=== PATIENT | male | born 1980 | race Two or more races ===

== ENCOUNTER 2022-03-17 09:11 | Emergency (ER) | payer OTHER, SELFPAY ==
--- NOTE | ~2022-03-17 | XR_ITS ---
EXAMINATION: XR CHEST CLINICAL INFORMATION: Cough COMPARISON: None TECHNIQUE: 2 views of the chest were obtained. FINDINGS: Cardiac silhouette is normal in size. The lungs are well aerated. There is no lobar consolidation. No pleural effusion or pneumothorax. No acute osseous abnormality. XR/XR chest 2V IMPRESSION: No acute pulmonary pathology.
[2022-03-17 09:17] VITALS: BP 140/77; PULSE 62; RESP 18; TEMP 36.4; O2SAT 97; BMI 27.9
[2022-03-17 09:45] LABS: COVID-19 Test Negative (Negative); IDNOW Serial# 55D5AD1C
[2022-03-17 09:49] LABS: IDNOW Serial# 9DB6401D; Influenza A Negative (Negative); Influenza B2 Negative (Negative)
[2022-03-17] MEDS: Ketorolac Tromethamine 30 MG/ML VIAL IM (09:56)
--- NOTE | 2022-03-17 09:56 | ED_ITS ---
HPI - URI/Sore Throat General Chief Complaint: Upper Respiratory Symptoms Stated Complaint: cough pain r lung Time Seen by Provider: 03/17/22 09:38 Source: patient Mode of arrival: ambulatory History of Present Illness HPI Narrative: 41-year-old male with no significant past medical history presenting to the ED complaining nonproductive cough x1 day. Reports coughing fit last night that caused right-sided chest wall discomfort, states pain now worse with palpation, coughing, and breathing. Denies known fever, chills, SOB, trauma/fall, abdominal pain nausea/vomiting, pedal edema, recent travel, sick contacts MD elicited complaint: cough Onset (ago): hour(s) Related Data Previous Rx's Medication Instructions Recorded benzonatate 100 mg capsule 100 mg PO TID PRN cough #14 caps 03/17/22 ketorolac 10 mg tablet 10 mg PO TID PRN pain 5 days #15 03/17/22 tabs lidocaine 5 % topical patch 1 patch topical DAILY PRN pain #30 03/17/22 (Lidoderm) ea Allergies Allergy/AdvReac Type Severity Reaction Status Date / Time sulfamethoxazole Allergy Intermediate HIVES Unverified 11/26/19 15:54 [From BACTRIM] trimethoprim [From BACTRIM] Allergy Intermediate HIVES Unverified 11/26/19 15:54 Sulfa (Sulfonamide Allergy Unknown Verified 04/01/17 00:00 Antibiotics) Review of Systems Review of Systems: Constitutional: No Fever, No Chills ENT/Mouth: No Ear Pain, No Nasal Congestion, No Sinus Pain, No Hoarseness, No sore throat, No Rhinorrhea, No Swallowing Difficulty Cardiovascular: + Chest Wall Pain, No SOB Respiratory: + Cough, No Sputum, No Wheezing Gastrointestinal: No Nausea, No Vomiting, No Diarrhea, No Constipation, No Abdominal pain Genitourinary: No Dysuria, No Urinary Frequency, No Hematuria, No Flank Pain Musculoskeletal: No joint pain, No Myalgias, No Joint Swelling Skin: No Skin Lesions, No rash Neuro: No Weakness, No Numbness, No Paresthesias Yes all other systems are reviewed and are negative Constitutional: Constitutional: Reports as per [facility] Past Medical History Attestation statement: The following information was validated with the patient. Social History Social History Advance Directives: No Advance Directives Information Provided: No Physical Exam Vital Signs: Vital Signs: Last Vital Signs Temp 97.5 F 03/17/22 09:17 Pulse 62 03/17/22 09:17 Resp 18 03/17/22 09:17 BP 140/77 H 03/17/22 09:17 Pulse Ox 97 03/17/22 09:17 O2 Del Method 03/17/22 09:17 BMI result Body Mass Index 27.9 Const: General: cooperative, healthy appearing and no acute distress Orie ntation/consciousness: patient oriented x3 Limitations: no limitations HEENT: Head: Yes normal to inspection and Yes atraumatic Ears: hearing grossly normal bilaterally, external ears normal and TM's normal bilaterally General nose exam: Normal external nose present Face and sinus: Yes normal facial exam Throat: Yes posterior oropharynx normal, Yes tonsils normal and Yes uvula midline Eyes: General: appearance normal, both eyes and all related structures EOM: EOMs intact bilaterally Neck: Neck: Yes normal visual inspection and Yes no meningeal signs Chest: Other: +ttp right anterior lower ribs midclavicular line Chest palpation & inspection: normal inspection of the chest, no crepitus and tenderness Resp: Effort & Inspection: normal respiratory effort, no respiratory distress and no stridor Auscultation: clear to auscultation bilaterally, no crackles, no rales, no rhonchi and no wheezes Cardio: Rate: regular rate Heart sounds: S1 normal heart sound present and S2 normal heart sound present GI: Inspection: Yes normal to inspection Palpation (GI): Soft to palpation, nontender, no guarding and not rigid Skin: Rashes: no rashes Wounds: no wounds Neuro: General: patient oriented x3, tone normal and no meningeal signs Gait exam (Neuro): Normal gait present Extrem: General: Yes normal to inspection Course Course Course Narrative: 1055--COVID and influenza negative. CXR unremarkable. Results discussed with patient including worrisome signs and symptoms and strict return precautions, and when to return to the emergency department. They verbalized understanding and feel safe for discharge at this time. Medications Administered Discontinued Medications Generic Name Dose Route Start Last Admin Trade Name Freq PRN Reason Stop Dose Admin Ketorolac Tromethamine 30 mg 03/17/22 09:50 03/17/22 09:56 Ketorolac Tromethamine 30 Mg/Ml Vial IM 03/17/22 09:51 30 mg ONCE ONE Administration Medical Decision Making Medical Decision Making MDM Narrative: 41-year-old male with no significant past medical history presenting to the ED complaining nonproductive cough x1 day. Reports coughing fit last night that caused right-sided chest wall discomfort, states pain now worse with palpation, coughing, and breathing. On exam vital signs stable, NAD, nontoxic appearing, lungs CTA, chest wall pain reproducible, abdomen soft/nontender. Concern for costochondritis vs occult rib fracture. Rule out pneumonia. Low suspicion for ACS/PE Plan: COVID-19/influenza testing, CXR, IM Toradol Please refer to course for remaining clinical decision making, interpretation of labs/imaging results, and discussions with consultants and/or family members. Differential Diagnosis Differential Diagnoses: The differential diagnosis associated with the presentation includes As above Lab Data Labs: Lab Results 03/17/22 03/17/22 Range/Units 09:23 09:23 COVID-19 (ARISTIDES) Negative (Negative) COVID-19 Clin Com See Note Influenza Type A (WENDY) Negative (Negative) Influenza Type B (WENDY) Negative (Negative) Influenza A & B Note See Note Radiology Impression Discussion of test interpretation with radiology: I have reviewed the radiologist's reading. Prescription Management I considered prescription management with: Pain Medication, Antiviral and Antibiotic Discharge Plan Discharge Clinical Impression: Acute costochondritis Patient Disposition: Home, Self-Care Instructions: Costochondritis (ED) Additional Instructions: You tested negative for COVID in the flu. Her x-rays unremarkable. Toradol as an anti-inflammatory/pain medication, take with food. In addition take Tylenol and use Lidoderm patches Georges Karon are for cough Follow-up with her doctor If symptoms persist or worsen return to the emergency department Prescriptions: New ketorolac 10 mg tablet 10 mg PO TID PRN (Reason: pain) 5 Days Qty: 15 0RF benzonatate 100 mg capsule 100 mg PO TID PRN (Reason: cough) Qty: 14 0RF lidocaine [Lidoderm] 5 % adhesive patch,medicated 1 patch topical DAILY MDD remove after 12 hours PRN (Reason: pain) Qty: 30 0RF Rx Instructions: leave on most painful area for up to 12 hrs Referrals: Bridgette Hebert MD [Primary Care Provider] - 1 week Interventions: ED Discharge Assessment Last Done: 03/17/22 11:06 Discharge Date/Time: 03/17/22 11:07
== END 2022-03-17 11:07 | disposition home or self-care (01) ==
PROVIDERS: Emergency Provider Emergency Medicine Emergency Medical Services; PCP Internal Medicine
DX: M94.0 Chondrocostal junction syndrome [Tietze] (principal); Z20.822 Contact with and (suspected) exposure to COVID-19
CPT/HCPCS: 71046; 87502; 87635; 96372; 99283; 99284; J1885

== ENCOUNTER 2022-07-08 08:51 | Emergency (ER) | payer OTHER, SELFPAY ==
--- NOTE | ~2022-07-08 | XR_ITS ---
EXAMINATION: XR CHEST CLINICAL INFORMATION: Cough COMPARISON: Radiographs 03/17/2022 TECHNIQUE: 2 views of the chest were obtained. FINDINGS: No significant abnormality is noted involving the heart, lungs, mediastinum, bony thorax or soft tissues. XR/XR chest 2V IMPRESSION: Unremarkable examination.
[2022-07-08 09:42] VITALS: BP 145/91; PULSE 81; RESP 18; TEMP 36.9; O2SAT 99; BMI 28.3
[2022-07-08 09:57] LABS: COVID-19 Test Negative (Negative); IDNOW Serial# 08D9AD1C
[2022-07-08 09:58] LABS: IDNOW Serial# BCCEAD1C; Influenza A Negative (Negative); Influenza B2 Negative (Negative)
--- NOTE | 2022-07-08 09:59 | ED.URI ---
HPI - URI/Sore Throat General Chief Complaint: Upper Respiratory Symptoms Stated Complaint: cough 2x days/ sore throat Time Seen by Provider: 07/08/22 09:46 Source: patient and RN notes reviewed Mode of arrival: ambulatory Limitations: no limitations History of Present Illness HPI Narrative: This is a [id number], with a past medical history of diabetes and hypertension, who presents to the emergency department with complaints of dry cough, shortness of breath which occurs while coughing, nasal congestion/rhinorrhea and sore throat x 2 days. Patient reports an dry, aching sore throat that worsens with swallowing. He states that the dry cough worsens at night. He tried taking tessalon perles which he had prescribed to him several months ago which provided him with some relief. Patient reports that his [id number] was diagnosed with strep through 3 days ago. He denies any fevers, chills, ear pain, chest pain, palpitations, abdominal pain, nausea or vomiting. He has had several episodes of diarrhea over the last few days. No bloody or black stool. Hx of diabetes, does not regularly check his blood glucose levels. No other complaints or concerns at this time. MD elicited complaint: cough, sore throat, rhinorrhea and nasal congestion Consistency: constant Severity: moderate Able to tolerate fluids by mouth: Yes Exacerbating factors: nothing Relieving factors: other (tessalon) Context: sick contacts Associated symptoms: sore throat Treatments prior to arrival: none Related Data Previous Rx's Medication Instructions Recorded benzonatate 100 mg capsule 100 mg PO TID PRN cough #14 caps 03/17/22 ketorolac 10 mg tablet 10 mg PO TID PRN pain 5 days #15 03/17/22 tabs lidocaine 5 % topical patch 1 patch topical DAILY PRN pain #30 03/17/22 (Lidoderm) ea benzonatate 100 mg capsule 100 mg PO TID PRN cough #14 caps 07/08/22 hydrocodone-homatropine 5 mg-1.5 5 ml PO Q6H cough #100 mL 07/08/22 mg/5 mL (5 mL) oral syrup (Hycodan) Allergies Allergy/AdvReac Type Severity Reaction Status Date / Time sulfamethoxazole Allergy Intermediate HIVES Verified 07/08/22 09:42 [From BACTRIM] trimethoprim [From BACTRIM] Allergy Intermediate HIVES Verified 07/08/22 09:42 Review of Systems Review of Systems: Constitutional: No Weight loss, No Fever, No Chills ENT/Mouth: No Ear Pain, No Nasal Congestion, No Sinus Pain, +Hoarseness, +sore throat, +Rhinorrhea, No Swallowing Difficulty Cardiovascular: No Chest Pain, No SOB Respiratory:+ Cough, No Sputum, No Wheezing Gastrointestinal: No Nausea, No Vomiting, +Diarrhea, No Constipation, No Abdominal pain Genitourinary: No Dysuria, No Urinary Frequency, No Hematuria, No Urinary Incontinence/retention, No Urgency, No Flank Pain Musculoskeletal: No joint pain, No Myalgias, No Joint Swelling Skin: No Skin Lesions, No rash Neuro: No Weakness, No Numbness, No Paresthesias Yes all other systems are reviewed and are negative Constitutional: Constitutional: Reports as per [facility] Social History Social History Advance Directives: No Advance Directives Information Provided: Yes Physical Exam Vital Signs: Vital Signs: Last Vital Signs Temp 98.4 F 07/08/22 10:54 Pulse 69 07/08/22 10:54 Resp 14 07/08/22 10:54 BP 129/81 07/08/22 10:54 Pulse Ox 99 07/08/22 10:54 O2 Del Method Room Air 07/08/22 10:54 BMI result Body Mass Index 28.3 Const: General: cooperative, comfortable and no acute distress Orientation/consciousness: patient oriented x3 Limitations: no limitations HEENT: Other: Posterior pharynx is mildly erythematous with mild tonsillar hypertrophy, no tonsillar exudates. Uvula is midline, no trismus, drooling or dysphonia. Head: Yes normal to inspection, Yes normocephalic and Yes atraumatic Ears: hearing grossly normal bilaterally and TM's normal bilaterally General nose exam: Normal external nose present Face and sinus: Yes normal facial exam and Yes sinuses nontender Mouth: Normal oral and palatal mucosa present and moist mucous membranes Throat: Yes posterior oropharynx normal Eyes: General: appearance normal, both eyes and all related structures Eyelids: Yes eyelids normal Conjunctivae: conjunctivae normal Sclerae: sclerae normal Pupils: Equal, round and reactive pupils present EOM: EOMs intact bilaterally Neck: Other: Mild anterior cervical lymphadenopathy Neck: Yes normal visual inspection, Yes full ROM and Yes no lymphadenopathy Chest: Chest palpation & inspection: normal inspection of the chest Resp: Effort & Inspection: normal respiratory effort and able to speak in complete sentences Auscultation: clear to auscultation bilaterally, no crackles, no rales, no rhonchi and no wheezes Cardio: Rate: regular rate Rhythm: regular rhythm Heart sounds: S1 normal heart sound present and S2 normal heart sound present GI: Inspection: Yes normal to inspection Skin: General skin exam: no rashes or lesions noted Trauma: no lacerations or abrasions Wounds: no wounds Neuro: General: patient oriented x3 and moves all extremities Cranial nerves: Yes Equal, round and reactive pupils present Extrem: General: Yes normal to inspection Right upper extremity: normal to inspection Left upper extremity: normal to inspection Right lower extremity: normal to inspection Left lower extremity: normal to inspection Course Reevaluation(s) Reevaluation #1: Influenza, covid, and strep test performed and is negative. VSS throughout entire visit. Patient's symptoms likely viral, conservative management discharge instructions given to patient. Given rx for tessalon and hycodan. Patient reporting unable to sleep at night due to persistent cough keeping him up at night. Advised that he may also be experiencing a dry cough as a medication side effect from lisinopril, advised to follow-up with his primary care physician. Advised to return with any new or worsening symptoms. Time: 11:05 Medical Decision Making Medical Decision Making [facility] Narrative: This is a [id number], hx of diabetes and htn, here for evaluation of dry cough, sore throat, nasal congestion/rhinorrhea x 2 days. Recent sick contact with strep throat. On examination, patient's posterior pharynx is mildly erythematous with mild tonsillar hypertrophy, uvula is midline, handling secretions well. Lungs CTAB, Vital signs WNL. Likely viral like illness, however patient is on lisinopril, has been on for 3 years without any compliations. Plan: POC glucose, Viral swabs, strep swab, chest x-ray ordered. Differential Diagnosis Differential Diagnoses: The differential diagnosis associated with the presentation includes Viral URI, bronchitis, pneumonia, influenza, COVID, reactive airway disease, medication side effect. Admission/Observation Consideration of admission/observation: Escalation of care including admission/observation considered Lab Data [facility] Lab Attestation statement: I reviewed the patient's lab results. Labs: Lab Results 07/08/22 07/08/22 07/08/22 Range/Units 09:38 09:38 09:49 POC Glucose (60-115) mg/dL COVID-19 (ARISTIDES) Negative (Negative) COVID-19 Clin Com See Note Influenza Type A (WENDY) Negative (Negative) Influenza Type B (WENDY) Negative (Negative) Influenza A & B Note See Note S. pyogenes GrpA WENDY Negative (Negative) 07/08/22 Range/Units 11:09 POC Glucose 103 (60-115) mg/dL COVID-19 (ARISTIDES) (Negative) COVID-19 Clin Com Influenza Type A (WENDY) (Negative) Influenza Type B (WENDY) (Negative) Influenza A & B Note S. pyogenes GrpA WENDY (Negative) Radiology Impression Discussion of test interpretation with radiology: I have reviewed the radiologist's reading. Radiologist Impression: EXAMINATION: XR CHEST CLINICAL INFORMATION: Cough COMPARISON: Radiographs 03/17/2022 TECHNIQUE: 2 views of the chest were obtained. FINDINGS: No significant abnormality is noted involving the heart, lungs, mediastinum, bony thorax or soft tissues. XR/XR chest 2V IMPRESSION: Unremarkable examination. Dictated By: Nirmal Romano MD Discharge Plan Discharge Clinical Impression: Viral infection Patient Disposition: Home, Self-Care Instructions: Viral Syndrome (ED) Additional Instructions: Your strep test, covid test, and flu test was negative today. Your chest x-ray was normal. Please take prescribed medications as directed. You may take tessalon perles as prescribed. Take cough syrup at bedtime only as needed. Please be aware that this has a narcotic, do not drink alcohol or drive while taking this medication. Drink plenty of fluids and get plenty of rest. You may take ibuprofen or tylenol as needed for symptoms. Please be aware that a very common side effect of lisinopril is a dry cough. If your symptoms continue to persist for 1-2 weeks, please follow up with your primary care physician as they may want to change your high blood pressure medication to another medication. If any new or worsening symptoms occur, please return for re-evaluation. Prescriptions: New benzonatate 100 mg capsule 100 mg PO TID PRN (Reason: cough) Qty: 14 0RF hydrocodone-homatropine [Hycodan] 5-1.5 mg/5 mL (5 mL) syrup 5 ml PO Q6H Qty: 100 0RF Rx Instructions: Partial Fill upon patient request. No Action ketorolac 10 mg tablet 10 mg PO TID PRN (Reason: pain) 5 Days Qty: 15 0RF benzonatate 100 mg capsule 100 mg PO TID PRN (Reason: cough) Qty: 14 0RF lidocaine [Lidoderm] 5 % adhesive patch,medicated 1 patch topical DAILY MDD remove after 12 hours PRN (Reason: pain) Qty: 30 0RF Rx Instructions: leave on most painful area for up to 12 hrs Interventions: ED Discharge Assessment Last Done: 07/08/22 11:42 Discharge Date/Time: 07/08/22 11:43
[2022-07-08 10:01] LABS: IDNOW Serial# 6674DD1D; Strep A Nucleic Acid Negative (Negative)
[2022-07-08 10:54] VITALS: BP 129/81; PULSE 69; RESP 14; TEMP 36.9; O2SAT 99
[2022-07-08 11:14] LABS: Glucose, Whole Blood 103 mg/dL (60-115)
== END 2022-07-08 11:43 | disposition home or self-care (01) ==
PROVIDERS: Physician Assistant Medical; Emergency Provider Emergency Medicine; PCP Internal Medicine
DX: B34.9 Viral infection, unspecified (principal); R05.9 Cough, unspecified; I10 Essential (primary) hypertension; Z20.822 Contact with and (suspected) exposure to COVID-19; Z20.828 Contact with and (suspected) exposure to other viral communicable diseases; Z79.899 Other long term (current) drug therapy
CPT/HCPCS: 71046; 82947; 87502; 87635; 87651; 99283

== ENCOUNTER 2022-07-10 06:42 | Emergency (ER) | payer OTHER, SELFPAY ==
[2022-07-10 07:12] VITALS: BP 145/87; PULSE 84; RESP 18; TEMP 36.6; O2SAT 98; BMI 27.4
--- NOTE | 2022-07-10 09:10 | ED_ITS ---
HPI - URI/Sore Throat General Chief Complaint: Upper Respiratory Symptoms Stated Complaint: Sore throat Time Seen by Provider: 07/10/22 09:08 Source: patient, RN notes reviewed and old records reviewed Mode of arrival: ambulatory History of Present Illness HPI Narrative: [id number], with a past medical history of diabetes and hypertension presenting to the emergency department with complaints of?continued sore throat x4 days. Reports pain and difficulty swallowing and dry cough. Admits to gargling with warm salt water without relief. Patient was seen and treated in our ED on 07/08 for similar symptoms tested negative for COVID/flu, strep, and had negative x-ray at that time. Denies known fever, chills, travel, SOB/CP MD elicited complaint: sore throat Related Data Previous Rx's Medication Instructions Recorded benzonatate 100 mg capsule 100 mg PO TID PRN cough #14 caps 03/17/22 ketorolac 10 mg tablet 10 mg PO TID PRN pain 5 days #15 03/17/22 tabs lidocaine 5 % topical patch 1 patch topical DAILY PRN pain #30 03/17/22 (Lidoderm) ea benzonatate 100 mg capsule 100 mg PO TID PRN cough #14 caps 07/08/22 hydrocodone-homatropine 5 mg-1.5 5 ml PO Q6H cough #100 mL 07/08/22 mg/5 mL (5 mL) oral syrup (Hycodan) Allergies Allergy/AdvReac Type Severity Reaction Status Date / Time sulfamethoxazole Allergy Intermediate HIVES Verified 07/08/22 09:42 [From BACTRIM] trimethoprim [From BACTRIM] Allergy Intermediate HIVES Verified 07/08/22 09:42 Review of Systems Review of Systems: Constitutional: No Fever, No Chills ENT/Mouth: No Ear Pain, No Nasal Congestion, No Sinus Pain, No Hoarseness, + sore throat, No Rhinorrhea, No Swallowing Difficulty Cardiovascular: No Chest Pain, No SOB Respiratory: +dry Cough, No Sputum, No Wheezing Gastrointestinal: No Nausea, No Vomiting, No Diarrhea, No Constipation, No Abdominal pain Musculoskeletal: No joint pain, No Myalgias, No Joint Swelling Skin: No Skin Lesions, No rash Neuro: No Weakness, No Numbness Yes all other systems are reviewed and are negative Constitutional: Constitutional: Reports as per HPI COUNT INCLUDES THE [facility] Past Medical History Attestation statement: The following information was validated with the patient. Social History Social History Advance Directives: No Advance Directives Information Provided: No Physical Exam Vital Signs: Vital Signs: Last Vital Signs Temp 97.9 F 07/10/22 07:12 Pulse 84 07/10/22 07:12 Resp 18 07/10/22 07:12 BP 145/87 H 07/10/22 07:12 Pulse Ox 98 07/10/22 07:12 O2 Del Method Room Air 07/10/22 07:12 BMI result Body Mass Index 27.4 Const: General: cooperative, healthy appearing and no acute distress Orientation/consciousness: patient oriented x3 Limitations: no limitations HEENT: Head: Yes normal to inspection and Yes atraumatic Ears: hearing grossly normal bilaterally, external ears normal, TM's normal bilaterally and mastoids normal General nose exam: Normal external nose present Face and sinus: Yes normal facial exam Throat: Yes uvula midline, No peritonsillar mass, Yes posterior oropharynx abnormal (+ posterior oropharynx erythematous, no exudates), No uvula laterally displaced and No uvular edema Eyes: General: appearance normal, both eyes and all related structures EOM: EOMs intact bilaterally Neck: Other: + bilateral submandibular lymphadenopathy Neck: Yes normal visual inspection, Yes no meningeal signs, Yes supple and No anterior neck swelling Resp: Effort & Inspection: normal respiratory effort, no respiratory distress and no stridor Auscultation: clear to auscultation bilaterally, no rhonchi and no wheezes Cardio: Rate: regular rate Heart sounds: S1 normal heart sound present and S2 normal heart sound present GI: Inspection: Yes normal to inspection Palpation (GI): Soft to palpation Skin: Rashes: no rashes Wounds: no wounds Neuro: General: patient oriented x3, tone normal and no meningeal signs Gait exam (Neuro): Normal gait present Extrem: General: Yes normal to inspection Course Course Course Narrative: -1032--mono screen negative. Rapid strep negative > in addition will send throat culture Results discussed with patient including worrisome signs and symptoms and strict return precautions, and when to return to the emergency department. They verbalized understanding and feel safe for discharge at this time. Medications Administered Discontinued Medications Generic Name Dose Route Start Last Admin Trade Name Freq PRN Reason Stop Dose Admin Dexamethasone Sodium Phosphate 10 mg 07/10/22 09:29 07/10/22 09:59 Dexamethasone Sod Phosphate 10 Mg/Ml Vial IVPUSH 07/10/22 09:30 10 mg ONCE ONE Administration Ketorolac Tromethamine 30 mg 07/10/22 09:29 07/10/22 09:59 Ketorolac Tromethamine 30 Mg/Ml Vial IM 07/10/22 09:30 30 mg ONCE ONE Administration Medical Decision Making Medical Decision Making MDM Narrative: [id number], with a past medical history of diabetes and hypertension presenting to the emergency department with complaints of?continued sore throat x4 days. On exam vital signs stable, NAD, nontoxic appearing, talking in complete sentences, no respiratory distress, posterior oropharynx erythematous, no exudates, uvula midline, no evidence of [employer]ING [employer]. Concern for strep pharyngitis versus mononucleosis vs viral syndrome. No evidence of [employer]INE[employer]ING MECH[employer]IC or Beck's. Low suspicion for pneumonia Plan: Repeat rapid strep, mono, p.o. Decadron/IM Toradol Please refer to course for remaining clinical decision making, interpretation of labs/imaging results, and discussions with consultants and/or family members. Differential Diagnosis Differential Diagnoses: The differential diagnosis associated with the presentation includes As above Admission/Observation Consideration of admission/observation: Escalation of care including admission/observation considered Lab Data [facility] Lab Attestation statement: I reviewed the patient's lab results. Labs: Lab Results 07/10/22 07/10/22 Range/Units 09:24 09:24 Monoscreen Negative (Negative) S. pyogenes GrpA WENDY Negative (Negative) Radiology Impression Discussion of test interpretation with radiology: I have reviewed the radiologist's reading. External Record Review External record reviewed: Inpatient record, Office record, Outpatient record, Prior outpatient labs, Prior outpatient radiology, Primary care record and Outside ED record Discharge Plan Discharge Clinical Impression: Pharyngitis Patient Disposition: Home, Self-Care Prescriptions: No Action ketorolac 10 mg tablet 10 mg PO TID PRN (Reason: pain) 5 Days Qty: 15 0RF benzonatate 100 mg capsule 100 mg PO TID PRN (Reason: cough) Qty: 14 0RF lidocaine [Lidoderm] 5 % adhesive patch,medicated 1 patch topical DAILY MDD remove after 12 hours PRN (Reason: pain) Qty: 30 0RF Rx Instructions: leave on most painful area for up to 12 hrs benzonatate 100 mg capsule 100 mg PO TID PRN (Reason: cough) Qty: 14 0RF hydrocodone-homatropine [Hycodan] 5-1.5 mg/5 mL (5 mL) syrup 5 ml PO Q6H Qty: 100 0RF Rx Instructions: Partial Fill upon patient request.
[2022-07-10 09:42] LABS: IDNOW Serial# 08D9AD1C; Strep A Nucleic Acid Negative (Negative)
[2022-07-10 09:57] LABS: Monotest Negative (Negative)
[2022-07-10] MEDS: dexAMETHasone sod phosphate 10 MG/ML VIAL IVPUSH (09:59)
[2022-07-10] MEDS: Ketorolac Tromethamine 30 MG/ML VIAL IM (09:59)
== END 2022-07-10 10:45 | disposition home or self-care (01) ==
PROVIDERS: Physician Assistant; Emergency Provider Emergency Medicine; PCP Internal Medicine
DX: J02.9 Acute pharyngitis, unspecified (principal); Z79.899 Other long term (current) drug therapy
CPT/HCPCS: 86308; 87070; 87651; 96372; 99283; 99284; J1100; J1885

== ENCOUNTER 2024-03-23 19:32 | Emergency (ER) | payer OTHER, SELFPAY ==
--- NOTE | ~2024-03-23 | XR_ITS ---
CLINICAL HISTORY: cough 2 view chest x-ray Comparison: CR/SR - XR CHEST 2V - 07/08/22 10:23 EDT Findings: No consolidation or effusion. Heart size is normal. No acute fracture. IMPRESSION: 1. No acute findings. This document has been electronically signed by: Loni Griffin MD on 03/23/2024 21:23:08
[2024-03-23 20:40] VITALS: BP 133/70; PULSE 95; RESP 18; TEMP 36.7; O2SAT 98; BMI 28.7
--- NOTE | 2024-03-23 20:40 | ED.URI ---
HPI - URI/Sore Throat General Chief Complaint: Upper Respiratory Symptoms Stated Complaint: persistent cough x1 week Time Seen by Provider: 03/23/24 23:21 Source: patient Mode of arrival: ambulatory Limitations: no limitations History of Present Illness ED Provider: Dr. Mer Valdez HPI Narrative: Patient comes to the emergency room complaining of cough for couple of days. Worse at night. Patient states that he tried [id number] lozenges without any significant relief. Patient denies fever chills. Denies chest pain or shortness of breath. Related Data Previous Rx's ?Medication ?Instructions ?Recorded benzonatate 100 mg capsule 100 mg PO TID PRN cough #14 caps 03/17/22 ketorolac 10 mg tablet 10 mg PO TID PRN pain 5 days #15 03/17/22 tabs lidocaine 5 % topical patch 1 patch topical DAILY PRN pain #30 03/17/22 (Lidoderm) ea benzonatate 100 mg capsule 100 mg PO TID PRN cough #14 caps 07/08/22 hydrocodone-homatropine 5 mg-1.5 5 ml PO Q6H cough #100 mL 07/08/22 mg/5 mL (5 mL) oral syrup (Hycodan) Magic Mouthwash 5 ml PO QID PRN pain (scale score 07/10/22 Diphen/Lido/Antacid 1:1:1 240 mL 4-6) 5 days #100 mL suspension benzonatate 100 mg capsule 100 mg PO TID PRN cough #10 caps 03/23/24 cetirizine 5 mg-pseudoephedrine ER 1 tab PO Q12H PRN nasal congestion 03/23/24 120 mg tablet,extended #14 tabs release,12hr (Zyrtec-D) Allergies Allergy/AdvReac Type Severity Reaction Status Date / Time sulfamethoxazole Allergy Intermediate HIVES Verified 03/23/24 20:41 [From BACTRIM] trimethoprim [From BACTRIM] Allergy Intermediate HIVES Verified 03/23/24 20:41 Review of Systems Review of Systems: Constitutional : No Weight loss, No Fever, No Chills, No Night Sweats, No Fatigue, No Malaise ENT/Mouth : No Hearing loss, No Ear Pain, No Nasal Congestion, No Sinus Pain, No Hoarseness, complaining of itchy throat, No Rhinorrhea, No Swallowing Difficulty Eyes: No Eye Pain, No Swelling, No Redness, No Foreign Body, No Discharge, No Vision Changes Cardiovascular : No Chest Pain, No SOB, No Dyspnea on Exertion, No Orthopnea, No Edema, No Palpitations Respiratory : Complaining of cough, No Sputum, No Wheezing, No Smoke Exposure, No Dyspnea Gastrointestinal : No Nausea, No Vomiting, No Diarrhea, No Constipation, No abdominal Pain, No Hematochezia, No Melena Genitourinary : no irregular bleeding, No Dysuria, No Urinary Frequency, No Hematuria, No Urinary Incontinence, No Urgency, No Flank Pain, No Urinary Flow Changes, No Hesitancy Musculoskeletal : No joint pain, No Myalgias, No Joint Swelling Skin : No Skin Lesions, No rash Neuro : No Weakness, No Numbness, No Paresthesias, No Loss of Consciousness, No Dizziness, No Headache Psych : No Anxiety/Panic, No Depression, No SI/HI/AH/VH, No Social Issues, Heme/Lymph: No Bruising, No Bleeding,No Lymphadenopathy Endocrine : No Polyuria, No Polydipsia, No Temperature Intolerance [facility] Social History Social History Advance Directives: No Advance Directives Information Provided: Yes Physical Exam Vital Signs: Vital Signs: Last Vital Signs Temp 97.9 F 03/23/24 23:25 Pulse 79 03/23/24 23:25 Resp 18 03/23/24 23:25 BP 154/91 H 03/23/24 23:25 Pulse Ox 96 03/23/24 23:25 O2 Del Method Room Air 03/23/24 23:25 BMI result Body Mass Index 28.7 Const: Other: Appearance: Alert. Oriented X3. No acute distress. Well-appearing Eyes: Pupils equal, round and reactive to light. ENT: Pharynx normal. Neck: Normal inspection. Neck supple. No lymph nodes noted. No crepitus CVS: Normal heart rate and rhythm. Pulses normal. Normal S1 and S2 Respiratory: No respiratory distress. Breath sounds normal. No Wheezing. No rales Abdomen: Soft and nontender. No rigidity. No distention. Skin: Skin warm and dry. Normal skin color. Normal skin turgor. Extremities: No lower extremity edema. No Lacerations. No Rash Neuro: Oriented X 3. No motor deficit. No sensory deficit. Moving all extremities. No slurred speech. CN 2 through 12 grossly intact Psych: calm, cooperative, normal affect Course Course Course Narrative: 43 yo male with no sig PMH here with cough worse at night - has a dry itchy throat, he has taken cough medicine teas and lozenges no relief. He has not had sputum, pain, fevers. He reports he cannot sleep due to the cough. He is a not a smoker at this time CXR and viral panel this is a RAPID medical screening exam the rest of the history and physical exam is to be done by the main provider. Medical Decision Making Medical Decision Making [facility] Narrative: My interpretation of chest x-ray, negative for infiltrate Serology negative for influenza a and B, RSV and COVID Lab Data [facility] Lab Attestation statement: I reviewed the patient's lab results. Labs: Lab Results 03/23/24 Range/Units 20:47 Influenza Type A (PCR) NEGATIVE (Negative) Influenza Type B (PCR) NEGATIVE (Negative) RSV RNA Qual (PCR) NEGATIVE (Negative) SARS-CoV-2 RNA (RT-PCR) NEGATIVE (Negative) Independent Interpretation I performed an independent interpretation of an: Plain X-Ray Radiology Impression Discussion of test interpretation with radiology: I have reviewed the radiologist's reading. Radiologist Impression: No consolidation or effusion. Heart size is normal. No acute fracture. IMPRESSION: 1. No acute findings. Discharge Plan Discharge Clinical Impression: Viral URI Patient Disposition: Home, Self-Care Instructions: Viral Syndrome (ED) Additional Instructions: Please follow-up with your primary care physician tomorrow. If you have any worsening or new symptoms, please return to the emergency room or call 911 Prescriptions: New cetirizine-pseudoephedrine [Zyrtec-D] 5-120 mg tablet extended release 12 hr 1 tab PO Q12H PRN (Reason: nasal congestion) Qty: 14 0RF benzonatate 100 mg capsule 100 mg PO TID PRN (Reason: cough) Qty: 10 0RF No Action ketorolac 10 mg tablet 10 mg PO TID PRN (Reason: pain) 5 Days Qty: 15 0RF benzonatate 100 mg capsule 100 mg PO TID PRN (Reason: cough) Qty: 14 0RF lidocaine [Lidoderm] 5 % adhesive patch,medicated 1 patch topical DAILY MDD remove after 12 hours PRN (Reason: pain) Qty: 30 0RF Rx Instructions: leave on most painful area for up to 12 hrs benzonatate 100 mg capsule 100 mg PO TID PRN (Reason: cough) Qty: 14 0RF hydrocodone-homatropine [Hycodan] 5-1.5 mg/5 mL (5 mL) syrup 5 ml PO Q6H Qty: 100 0RF Rx Instructions: Partial Fill upon patient request. Magic Mouthwash Diphen/Lido/Antacid 1:1:1 240 mL suspension 5 ml PO QID PRN (Reason: pain (scale score 4-6)) 5 Days Qty: 100 0RF Rx Instructions: Lidocaine Viscous 2 % 80mL; diphenhydramine 12.5 mg/5 mL 80mL; aluminum-mag hydrox-simeth [id number]/5mL 80mL Swish, gargle, and spit Stand Alone Forms: Work/School Release Print Language: Ecuadorean
[2024-03-23 21:33] LABS: Influenza A PCR NEGATIVE (Negative); Influenza B PCR NEGATIVE (Negative); Resp Syncy Virus RNA Qual PCR NEGATIVE (Negative); SARS COV2 PCR INHOUSE NEGATIVE (Negative)
[2024-03-23 23:25] VITALS: BP 154/91; PULSE 79; RESP 18; TEMP 36.6; O2SAT 96
--- NOTE | 2024-03-23 23:26 | PC.NURSE ---
pt called into triage where he was evaluated by md maria with plan for dc home with prescriptions. pt well appearing
[2024-03-23 23:54] VITALS: BP 154/91; PULSE 79; RESP 18; TEMP 36.6; O2SAT 96
== END 2024-03-23 23:55 | disposition home or self-care (01) ==
PROVIDERS: Emergency Medicine; Emergency Provider Emergency Medicine
DX: J06.9 Acute upper respiratory infection, unspecified (principal); R05.9 Cough, unspecified; Z03.818 Encounter for observation for suspected exposure to other biological agents ruled out
CPT/HCPCS: 0241U; 71046; 99282; 99283

== ENCOUNTER → 2024-03-23 20:41 | Outpatient (BNV) | payer OTHER, SELFPAY | PROVIDERS: Visit Provider Radiology Diagnostic Radiology | DX: R05.9 Cough, unspecified (principal) | CPT/HCPCS: 71046 ==